=== PATIENT | female | born 1985 | race Caucasian/White ===

== ENCOUNTER 2022-12-15 13:00 | Outpatient (RCR) | payer BC, OTHER, SELFPAY ==
--- NOTE | 2022-09-23 11:42 | OPREHPOC ---
Outpatient Therapy Plan of Care This is a Multidisciplinary Plan of Care that may contain components documented by all disciplines (PT, OT, and ST.) PT Problem 1 PT Problem #1 Knowledge Deficit PT Goal 1 Goal 1. Patient will perform independent HEP Target Visit 6 PT Problem 2 PT Problem #2 Pain PT Goal 1 Goal 1. Patient will navigate the grocery store without hip pain Target Visit 6 PT Goal 2 Goal 2. Patient will report pain no higher than 1/10 with intercourse Target Visit 6 PT Problem 3 PT Problem #3 Impaired Strength PT Goal 1 Goal 1. Improve hip abduction to 5/5 Target Visit 6
--- NOTE | 2022-09-23 11:43 | PTOPEVAL1 ---
Assessment and note entered by Katya Will DPT Evaluation Information Assessment Status Evaluation Subjective Information Pt reports she has been having some hip/pelvic pain, for about 8 months. Has noticed it after prolonged walking (like grocery shopping) but is occurring more frequently. Had significant pain with her last pelvic exam. Highest pain recently 7 /10 and lowest 0/10. Has decreased after being given vaginal valium. Also noticed pain with intercourse. Urinates 5-7 times a day and does not get up at night. No urine leakage or pain. Can hold urine unlimited amounts of time. BM 2-3 times a week with use of miralax. No pain. Pt has never been . No other rn gynecology or b/b issues. Reported Pain Level Pain Score 1: Self Report Assessment PT Clinical Summary The patient is presenting to skilled therapy with an ongoing history of right sided hip and pelvic pain. She presents with decreased strength, pain with palpation, and increased pelvic floor muscle tone which are contributing to her pain with prolonged walking and other activities. She will highly benefit from therapy to address pain and dysfunction in order to return to prior level. Plan of Care Interventions Electrical Stimulation,Hot Pack/Cold Pack,Manual Therapy,Neuro Re-education,Patient/Caregiver Education,Therapeutic Activities,Therapeutic Exercise PT Services Indicated Yes Treatment Frequency and 1 time a week for 6 weeks Duration These treatments will address the objective and functional deficits as defined above. The patient will be advanced safely and appropriately in order for the patient to progress towards his/her prior level of function. Additional exercises will be introduced and as well as a comprehensive home exercise program upon discharge, if needed, ?to ensure carryover of functional gains achieved in the clinic. This treatment plan has been reviewed and agreement upon by the patient.
--- NOTE | 2022-11-04 11:41 | OPREHPOC ---
Outpatient Therapy Plan of Care This is a Multidisciplinary Plan of Care that may contain components documented by all disciplines (PT, OT, and ST.) PT Problem 1 PT Problem #1 Knowledge Deficit PT Goal 1 Goal 1. Patient will perform independent HEP Target Visit 6 Progress Partially Met Comment Issued new HEP 11/04/22 PT Problem 2 PT Problem #2 Pain PT Goal 1 Goal 1. Patient will navigate the grocery store without hip pain Target Visit 6 Progress Partially Met PT Goal 2 Goal 2. Patient will report pain no higher than 1/10 with intercourse Target Visit 6 Progress Partially Met PT Problem 3 PT Problem #3 Impaired Strength PT Goal 1 Goal 1. Improve hip abduction to 5/5 Target Visit 6 Progress Met
--- NOTE | 2022-11-04 11:41 | PTOPPROG ---
Assessment and note entered by Katya Will DPT Evaluation Information Assessment Status Progress Subjective Information Highest pain in the last week 5/10 and lowest 0/10 . Was sore after doing a lot of activity last week but went away quickly. Reports her pain frequency and intensity has decreased with therapy. Is able to grocery shop without as much pain but does have some soreness after. Will be out of town this weekend doing a lot of walking and unsure how that will feel. Assessment PT Clinical Summary The patient has made excellent progress and reports overall decreased pain frequency and intensity. She is now able to grocery shop with only soreness afterward. She also demonstrates improved hip strength and decreased pain with palpation. Due to her progress but continued pain after grocery shopping, plan to follow up with patient in 1 month to ensure further decrease of pain and improvement of function. Plan of Care Interventions Hot Pack/Cold Pack,Manual Therapy,Neuro Re- education,Patient/Caregiver Education,Therapeutic Activities,Therapeutic Exercise,Self-Care/Home Management PT Services Indicated Yes Treatment Frequency and 1 visit in 4 weeks Duration These treatments will address the objective and functional deficits as defined above. The patient will be advanced safely and appropriately in order for the patient to progress towards his/her prior level of function. Additional exercises will be introduced and as well as a comprehensive home exercise program upon discharge, if needed, ?to ensure carryover of functional gains achieved in the clinic. This treatment plan has been reviewed and agreement upon by the patient.
--- NOTE | 2022-12-01 15:38 | OPREHPOC ---
Outpatient Therapy Plan of Care This is a Multidisciplinary Plan of Care that may contain components documented by all disciplines (PT, OT, and ST.) PT Problem 1 PT Problem #1 Knowledge Deficit PT Goal 1 Goal 1. Patient will perform independent HEP Target Visit 14 Progress Partially Met Comment Issued new HEP 11/04/22 PT Problem 2 PT Problem #2 Pain PT Goal 1 Goal 1. Patient will navigate the grocery store without hip pain Target Visit 14 Progress Partially Met PT Goal 2 Goal 2. Patient will report pain no higher than 1/10 with intercourse Target Visit 6 Progress Met PT Problem 3 PT Problem #3 Impaired Strength PT Goal 1 Goal 1. Improve hip abduction to 5/5 without pain Target Visit 14 Progress Partially Met
--- NOTE | 2022-12-01 15:38 | PTOPPROG ---
Assessment and note entered by Katya Will DPT Evaluation Information Assessment Status Progress Subjective Information Highest pain in the last week 10 and lowest /10 . Has had more pain recently and still has struggled with grocery shopping, very sore afterward. Reports she still has not had any pain with sex or other pelvic pain. Assessment PT Clinical Summary The patient reports an increase in pain after not being seen in therapy for 1 month and now is having more difficulty with activities like grocery shopping. She reports no pelvic pain and demonstrates no tenderness to pelvic floor palpation. Her pain seems to be localized to her anterior hip and she demonstrates right hip weakness which is contributing to her difficulty grocery shopping. She will benefit from skilled therapy to focus on right hip pain in order to safely return to prior level of function. Plan of Care Interventions Electrical Stimulation,Gait Training,Hot Pack/Cold Pack,Manual Therapy,Neuro Re-education,Patient/ Caregiver Education,Therapeutic Activities, Therapeutic Exercise PT Services Indicated Yes Treatment Frequency and 2 times a week for 8 visits Duration These treatments will address the objective and functional deficits as defined above. The patient will be advanced safely and appropriately in order for the patient to progress towards his/her prior level of function. Additional exercises will be introduced and as well as a comprehensive home exercise program upon discharge, if needed, ?to ensure carryover of functional gains achieved in the clinic. This treatment plan has been reviewed and agreement upon by the patient.
--- NOTE | 2022-12-16 15:14 | PCPTNOTE ---
This treatment is being continued on visit number [id number]. Please see documentation on both accounts to view progress. Completed interventions, outcomes, and problems have been marked as Inactive to facilitate the copying of the Care plan routine for recurring accounts.
== END 2022-12-16 13:57 | disposition still patient (30) ==
LOC: ANHGOSHPT 13:00
PROVIDERS: PCP Physician Assistant; Visit Provider Physician Assistant
DX: M62.89 Other specified disorders of muscle (principal)
CPT/HCPCS: 97110; 97112; 97140; 97161; 97530

== ENCOUNTER 2023-01-26 13:15 | Outpatient (RCR) | payer BC, OTHER, SELFPAY ==
--- NOTE | 2022-12-16 15:15 | PCPTNOTE ---
The treatment documented on this account is a continuation of the treatment documented on visit number [id number]. Please see documentation on both accounts to view progress. The Plan of Care has been transitioned and updated within the new V#. I have addressed and agree with the discipline specific Problems, Interventions, and Goals for the current certification period. Completed interventions, outcomes, and problems have been marked as Inactive to facilitate the copying of the Care plan routine for recurring accounts.
--- NOTE | 2022-12-25 12:51 | PCPTNOTE ---
Patient called to cancel appointment 12/25/22 due to feeling ill.
--- NOTE | 2022-12-29 13:27 | OPREHPOC ---
Outpatient Therapy Plan of Care This is a Multidisciplinary Plan of Care that may contain components documented by all disciplines (PT, OT, and ST.) PT Problem 1 PT Problem #1 Knowledge Deficit PT Goal 1 Goal 1. Patient will perform independent HEP Target Visit 18 Progress Partially Met PT Problem 2 PT Problem #2 Pain PT Goal 1 Goal 1. Patient will navigate the grocery store without hip pain Target Visit 18 Progress Partially Met PT Goal 2 Goal 2. Patient will report pain no higher than 1/10 with intercourse Target Visit 6 Progress Met PT Problem 3 PT Problem #3 Impaired Strength PT Goal 1 Goal 1. Improve hip abduction to 5/5 without pain Target Visit 14 Progress Met
--- NOTE | 2022-12-29 13:27 | PTOPPROG ---
Assessment and note entered by Katya Will DPT Evaluation Information Assessment Status Progress Subjective Information Highest pain in the last few weeks 09/26 and lowest 05/29. Feels that starting back to therapy has been helping her pain not occur as often but she is still noticing it. Assessment PT Clinical Summary The patient has continued to make good progress in therapy and reports after resuming therapy her pain intensity has decreased again. She demonstrates full, pain free strength but continues to have pain with anterior hip palpation and display SIJ impairments and will benefit from further therapy to safely return to prior level of function. Plan of Care Interventions Electrical Stimulation,Gait Training,Hot Pack/Cold Pack,Manual Therapy,Neuro Re-education,Patient/ Caregiver Education,Therapeutic Activities, Therapeutic Exercise PT Services Indicated Yes Treatment Frequency and 2-4 visits in 2-4 weeks Duration These treatments will address the objective and functional deficits as defined above. The patient will be advanced safely and appropriately in order for the patient to progress towards his/her prior level of function. Additional exercises will be introduced and as well as a comprehensive home exercise program upon discharge, if needed, ?to ensure carryover of functional gains achieved in the clinic. This treatment plan has been reviewed and agreement upon by the patient.
--- NOTE | 2023-01-26 13:43 | PTOPDC ---
Assessment and note entered by Katya Will DPT Evaluation Information Assessment Status Discharge Subjective Information Pt reports highest pain 3/10 in last week, some soreness after grocery shopping. Otherwise has been feeling pretty good and has been able to do activities. Reported Pain Level Pain Score 3: Self Report Assessment PT Clinical Summary The patient has continued to make some progress in therapy and reports no tenderness to palpation this visit. She has had mild pain after grocery shopping but overall has been feeling good. Plan to hold therapy for independent HEP at this time and patient is to follow up as needed, otherwise will discharge. Plan of Care PT Services Indicated No
== END 2023-01-26 15:43 | disposition home or self-care (01) ==
LOC: ANHGOSHPT 13:15
PROVIDERS: PCP Physician Assistant; Visit Provider Physician Assistant
DX: M62.89 Other specified disorders of muscle (principal)
CPT/HCPCS: 97110; 97112; 97140; 97530

== ENCOUNTER 2024-05-19 13:41 | Outpatient (CLI) | payer BC, OTHER, SELFPAY ==
--- NOTE | ~2024-05-19 | MM_ITS ---
EXAMINATION: MM screening rhett BI w aura HISTORY: Screening TECHNIQUE: Craniocaudal and mediolateral oblique 3-D tomosynthesis images were obtained and synthetic 2-D images were generated. CAD analysis was submitted and interpreted. COMPARISON: No prior mammogram is available for comparison at this institution. BREAST PARENCHYMAL COMPOSITION: Dense: The breasts are heterogeneously dense, which may obscure small masses FINDINGS: There is no evidence of suspicious mass, calcification, or architectural distortion to sugg est malignancy in either breast. There has been no suspicious interval change. IMPRESSION: 1. No mammographic evidence of malignancy. 2. Recommend routine screening mammography in one year. BI-RADS Category 1: Negative Reviewed, dictated and finalized at location [facility]. [facility] [employer]
== END 2024-05-19 13:42 | disposition home or self-care (01) ==
PROVIDERS: PCP Physician Assistant
DX: Z12.31 Encounter for screening mammogram for malignant neoplasm of breast (principal)
CPT/HCPCS: 77063; 77067